=== PATIENT | male | born 1995 | race Caucasian/White ===

== ENCOUNTER 2017-04-19 07:18 | Emergency (ER) | payer OTHER ==
[~2017-04-19] VITALS: Ht 167.6 cm; Wt 81.6 kg
[2017-04-19 07:32] VITALS: BP 111/65
--- NOTE | 2017-04-19 07:46 | PHYS DOC ---
Past History Past Medical History: No Pertinent History Past Surgical History: Other Smoking: Cigarettes, Less than 1pk/day Alcohol Use: None Drug Use: None Adult General Chief Complaint Chief Complaint: SORE THROAT HPI HPI 22-year-old male patient complaining of sore throat and mouth pain inside of his lips for one week and not getting better with [id number] medication. Patient states the pain getting worse with swallowing and drinking citric liquid. Patient denies fever, nasal congestion, cough, nausea, headache. Patient states he tried to see his primary care physician but the appointment is weeks away. Review of Systems Review of Systems Constitutional: Denies fever or chills [] Eyes: Denies change in visual acuity, redness, or eye pain [] HENT: Denies nasal congestion, reports sore throat and mouth pain Respiratory: Denies cough or shortness of breath [] Cardiovascular: No additional information not addressed in HPI [] GI: Denies abdominal pain, nausea, vomiting, bloody stools or diarrhea [] : Denies dysuria or hematuria [] Musculoskeletal: Denies back pain or joint pain [] Integument: Denies rash or skin lesions [] Neurologic: Denies headache, focal weakness or sensory changes [] Endocrine: Denies polyuria or polydipsia [] All other systems were reviewed and found to be within normal limits, except as documented in this note. Current Medications Current Medications Current Medications Medications (Trade) Dose Ordered Sig/Carly Start Time Stop Time Status Last Admin Dose Admin Lidocaine HCl 15 ml 1X ONCE 04/19/17 07:45 04/19/17 07:46 UNV Allergies Allergies Allergies Coded Allergies Type Severity Reaction Last Updated Verified No Known Drug Allergies 04/19/17 No Physical Exam Physical Exam Constitutional: Well developed, well nourished, mild distress, non-toxic appearance. [] HENT: Normocephalic, atraumatic, bilateral external ears normal, oropharynx moist, erythema and inflammation and erythema of uvula and tonsils and oral mucosa,nose normal. [] Eyes: PERRLA, EOMI, conjunctiva normal, no discharge. [] Neck: Normal range of motion, no tenderness, supple, no stridor. [] Cardiovascular:Heart rate regular rhythm, no murmur [] Lungs & Thorax: Bilateral breath sounds clear to auscultation [] Neurologic: Alert and oriented X 3, normal motor function, normal sensory function, no focal deficits noted. [] Psychologic: Affect normal, judgement normal, mood normal. [] Current Patient Data Vital Signs Vital Signs Date Time Temp Pulse Resp B/P (MAP) Pulse Ox O2 Delivery O2 Flow Rate FiO2 04/19/17 07:32 97.5 71 18 99 Room Air EKG EKG [] Radiology/Procedures Radiology/Procedures [] Course & Med Decision Making Course & Med Decision Making Pertinent Labs reviewed. (See chart for details) discharge: I've spoken with the patient and/or caregivers. I've explained the patient's condition, diagnosis and treatment plan based on information available to me at this time. I've answered the patient's and/or caregivers questions and addressed any concerns. The patient and/or caregivers have a good understanding the patient's diagnosis, condition and treatment plan as can be expected at this point. Vital signs have been stabilized. The patient's condition is stable for discharge from the emergency department. The patient will pursue further outpatient evaluation with her primary care provider or other designated consulting physician as outlined in the discharge instructions. Patient and/or caregivers are agreeable to this plan of care and follow-up instructions have been explained in detail. The patient and/or caregivers have received these instructions in written format and expressed understanding of these discharge instructions. The patient and her caregivers are aware that if any significant change in condition or worsening of symptoms should prompt him to immediately return to this of the closest emergency department. If an emergent department is not readily available I would encourage him to call 911. [] Dragon Disclaimer Dragon Disclaimer This electronic medical record was generated, in whole or in part, using a voice recognition dictation system. Departure Departure: Impression: Primary Impression: Pharyngitis Additional Impression: Gingivitis Disposition: HOME, SELF-CARE (At 0803) Condition: IMPROVED Referrals: CURTIS MARTELL DO, [facility] (PCP) Patient Instructions: Gingivitis, Viral and Bacterial Pharyngitis Additional Instructions: Drink plenty of liquids Follow-up with your primary care physician in 3-5 days Return to ER if not getting better Scripts [viscus Lidocaine] No Conflict Check 2 ML QIDPRN Y for PAIN, #1 BOT Prov: NIKKO HUANG MD 04/19/17 Amoxicillin/Potassium Clav (AUGMENTIN 875-125 TABLET) 1 Each Tablet 1 TAB PO BID, #14 TAB Prov: NIKKO HUANG MD 04/19/17 Problem Qualifiers NIKKO HUANG MD Apr 19, 2017 07:46
[2017-04-19] MEDS: LIDOCAINE 2% VISCOUS 15 ML SOLUTION. SWSW ONE (07:47)
[2017-04-19] MEDS ORDERED: AMOX1TAB61 PO (08:06)
[2017-04-19] MEDS ORDERED: viscus Lidocaine (08:06)
== END 2017-04-19 08:12 | disposition home or self-care (01) ==
LOC: ER 07:18
DX: J02.9 Acute pharyngitis, unspecified (principal); K05.10 Chronic gingivitis, plaque induced; F17.210 Nicotine dependence, cigarettes, uncomplicated
CPT/HCPCS: 87070; 87880; 99283

== ENCOUNTER 2018-06-05 21:25 | Emergency (ER) | payer OTHER ==
[~2018-06-05] VITALS: Ht 167.6 cm; Wt 73.9 kg
[~2018-06-05 21:25] MED LIST: AMOX1TAB61 PO; viscus Lidocaine
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
[2018-06-05] MEDS ORDERED: LIDOCAINE 2%/EPI 1:100,000 20 ML VIAL. ONE (21:33)
[2018-06-05] MEDS ORDERED: NEOMY/BACITR/POLYMYXIN OINT PACKET. TP ONE ×2 (21:34→22:00)
[2018-06-05] MEDS ORDERED: LIDOCAINE 2% 20 ML VIAL. ONE (21:35)
[2018-06-05] MEDS ORDERED: BACI1PAC16 TP (21:54)
[2018-06-05] MEDS ORDERED: LIDOCAINE 2% 20 ML VIAL. IJ ONE (22:00)
[2018-06-05] MEDS ORDERED: IBUPROFEN 800 MG TABLET. PO ONE (22:00)
[2018-06-05] MEDS ORDERED: LIDOCAINE 2%/EPI 1:100,000 20 ML VIAL. IJ ONE (22:00)
[2018-06-05 22:25] VITALS: BP 105/61
== END 2018-06-05 22:25 | disposition home or self-care (01) ==
LOC: ER 21:25
DX: S61.012A Laceration without foreign body of left thumb without damage to nail, initial encounter (principal); F17.210 Nicotine dependence, cigarettes, uncomplicated; W26.0XXA Contact with knife, initial encounter; Y93.89 Activity, other specified; Y92.89 Other specified places as the place of occurrence of the external cause; Y99.8 Other external cause status
CPT/HCPCS: 12001; 99283; J2001

== ENCOUNTER 2018-06-28 13:27 | Emergency (ER) | payer OTHER ==
[~2018-06-28] VITALS: Ht 170.2 cm; Wt 73.9 kg
[~2018-06-28 13:27] MED LIST changes: +BACI1PAC16 TP
--- NOTE | 2018-06-28 13:44 | PHYS DOC ---
Past History Past Medical History: No Pertinent History Past Surgical History: Other Smoking: Cigarettes, Less than 1pk/day Alcohol Use: Occasionally Drug Use: None Adult General Chief Complaint Chief Complaint: WOUND CHECK HPI HPI Patient presents with need for sutures to be removed from his left hand. They've been in for about a week. He's had no redness or pain in the area. He also has had some nasal congestion and fullness in his sinuses. He denies any fever. He has taken Claritin and Flonase etc. without much relief.[] Review of Systems Review of Systems Constitutional: Denies fever or chills [] Eyes: Denies change in visual acuity, redness, or eye pain [] HENT: Per history of present illness[] Respiratory: Denies cough or shortness of breath [] Cardiovascular: No additional information not addressed in HPI [] GI: Denies abdominal pain, nausea, vomiting, bloody stools or diarrhea [] : Denies dysuria or hematuria [] Musculoskeletal: Denies back pain or joint pain [] Integument: Denies rash or skin lesions [] Neurologic: Denies headache, focal weakness or sensory changes [] Endocrine: Denies polyuria or polydipsia [] All other systems were reviewed and found to be within normal limits, except as documented in this note. Allergies Allergies Allergies Coded Allergies Type Severity Reaction Last Updated Verified No Known Drug Allergies 04/19/17 No Physical Exam Physical Exam Constitutional: Well developed, well nourished, no acute distress, non-toxic appearance. [] HENT: Some nasal congestion. [] Eyes: PERRLA, EOMI, conjunctiva normal, no discharge. [] Neck: Normal range of motion, no tenderness, supple, no stridor. [] Cardiovascular:Heart rate regular rhythm, no murmur [] Lungs & Thorax: Bilateral breath sounds clear to auscultation [] Abdomen: Bowel sounds normal, soft, no tenderness, no masses, no pulsatile masses. [] Skin: Well-healed wound left hand. [] Back: No tenderness, no CVA tenderness. [] Extremities: No tenderness, no cyanosis, no clubbing, ROM intact, no edema. [] Neurologic: Alert and oriented X 3, normal motor function, normal sensory function, no focal deficits noted. [] Psychologic: Affect normal, judgement normal, mood normal. [] EKG EKG [] Radiology/Procedures Radiology/Procedures [] Course & Med Decision Making Course & Med Decision Making Pertinent Labs and Imaging studies reviewed. (See chart for details) [] Dragon Disclaimer Dragon Disclaimer This electronic medical record was generated, in whole or in part, using a voice recognition dictation system. Departure Departure: Impression: Primary Impression: Allergic rhinitis Additional Impression: Visit for suture removal Disposition: HOME, SELF-CARE Condition: STABLE Referrals: PCP,UNKNOWN (PCP) Patient Instructions: Allergic Rhinitis Additional Instructions: Return to the emergency department with any new or concerning symptoms Problem Qualifiers Primary Impression: Allergic rhinitis Allergic rhinitis trigger: pollen Allergic rhinitis seasonality: seasonal Qualified Codes: J30.1 - Allergic rhinitis due to pollen NIKITA AL DO June 28, 2018 13:44
[2018-06-28 13:50] VITALS: BP 112/69
== END 2018-06-28 13:50 | disposition home or self-care (01) ==
LOC: ER 13:27
DX: S60.922D Unspecified superficial injury of left hand, subsequent encounter (principal); R09.81 Nasal congestion; X58.XXXD Exposure to other specified factors, subsequent encounter
CPT/HCPCS: 99281; 99282

== ENCOUNTER 2019-09-18 20:10 | Emergency (ER) | payer OTHER ==
[~2019-09-18] VITALS: Ht 170.2 cm; Wt 79.5 kg
[2019-09-18 20:10] VITALS: BP 113/76
[2019-09-18] MEDS ORDERED: AMOX500T PO (20:44)
--- NOTE | 2019-09-18 20:48 | PHYS DOC ---
Past History Past Medical History: No Pertinent History Past Surgical History: Other Smoking: Cigarettes, Less than 1pk/day Alcohol Use: Rarely Drug Use: None Adult General HPI HPI Patient is a 24 year old male who presents with sore throat. He has had something similar in the past which is been caused by gingivitis and canker sores. He had to be on nystatin oral solution and antibiotics the last time this happened. He states this started yesterday and is progressively gotten worse. He states the sounds bad as it was last time. He is starting to get lesions on the back of his mouth which is what happened the last time. He denies any fevers. He is eating and drinking without difficulty. He denies any shortness of breath. Review of Systems Review of Systems General: Denies fever, chills, sweats, fatigue Eyes: Denies drainage, blurred vision, eye redness HENT: Denies rhinorrhea, earache reports sore throat Respiratory: Denies cough, shortness of breath, wheezing Cardiac: Denies edema, palpitations, chest pain GI: Denies abdominal pain, Nausea, vomiting MSK: Denies back pain, neck pain Skin: Denies rash, jaundice Neuro: Denies headache, dizziness Psychiatric: Denies SI/HI Allergies Allergies Allergies Coded Allergies Type Severity Reaction Last Updated Verified No Known Drug Allergies 04/19/17 No Physical Exam Physical Exam General: Awake, alert, NAD. Well Nourished, well hydrated. Cooperative HEENT: Atraumatic, EOMI, PERRL, airway patent, moist oral mucosa, red lesions on soft palate, no tonsillar changes Neck: Supple, trachea midline Respiratory: CTA bilaterally, normal effort, no wheezing/crackles CV: RRR, no murmur, cap refill <2 GI: Soft, nondistended, nontender, no masses MSK: No obvious deformities Skin: Warm, dry, intact Neuro: A&O x3, speech NL, sensory and motor grossly intact, no focal deficits Psych: Normal affect, normal mood, not suicidal or homicidal EKG EKG [] Radiology/Procedures Radiology/Procedures [] Course & Med Decision Making Course & Med Decision Making Pertinent Labs and Imaging studies reviewed. (See chart for details) Patient is 24-year-old male who presents to the emergency room with a sore t hroat. He has a history of canker sores and oral lesions in the past that have been related to yeast. We will place him on Magic mouthwash and amoxicillin. Patient does not have any airway compromise or swelling that is concerning at this time. He does not have any growths. Patient's test results and vitals while in the ED were fully reviewed and discussed with the patient. Patient is stable and at this time does not need admission to the hospital. We have discussed strict return precautions and the importance of following up with their Primary Care Physician. Patient stated understanding and was given an opportunity to ask any questions. Patient is in agreement with plan. Dragon Disclaimer Dragon Disclaimer This electronic medical record was generated, in whole or in part, using a voice recognition dictation system. Departure Departure: Impression: Primary Impression: Oral lesion Disposition: 01 HOME/RESIDENCE PRIOR TO ADM Condition: STABLE Referrals: PCP,UNKNOWN (PCP) Patient Instructions: Canker Sores Scripts Amoxicillin (AMOXICILLIN) 500 Mg Tablet 1 TAB PO BID for pharyngitis, #20 TAB Prov: LENKA GUERRA MD 09/18/19 Justification of Admission: Justification of Admission: Justification of Admission Dx: No LENKA GUERRA MD Sep 18, 2019 20:48
[2019-09-18] MEDS: FLUCONAZOLE 100 MG TABLET. PO ONE (21:17)
== END 2019-09-18 20:18 | disposition home or self-care (01) ==
LOC: ER 20:10
DX: K13.70 Unspecified lesions of oral mucosa (principal); F17.210 Nicotine dependence, cigarettes, uncomplicated
CPT/HCPCS: 99283